=== PATIENT | female | born 1965 ===

== ENCOUNTER 2020-08-24 11:58 | Emergency (ER) | payer OTHER ==
[~2020-08-24] VITALS: Ht 167.6 cm; Wt 95.3 kg
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
[2020-08-24] MEDS ORDERED: Acetaminophen 500mg (ES) tab ORAL ONE (12:45)
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
[2020-08-24] MEDS ORDERED: HYDROCODON-ACE1 EA15 ORAL (13:56)
[2020-08-24] MEDS ORDERED: IBUPROFEN600 M1 ORAL (13:56)
--- NOTE | 2020-08-24 14:02 | NUR ---
ED Nurse Note: pt L arm placed in sling. pt verbalized understanding and education regarding sling and arm care. Pt cleared by health care Provider for discharge. DC instructions/prescription was given and explained to pt and verbalized understanding of teachings. All medical deviecs such as ID band removed. Pt is AAO x4, ambulatory and left with all personal belongings.
[2020-08-24 14:03] VITALS: BP 146/78
== END 2020-08-24 14:04 | disposition home or self-care (01) ==
LOC: EMR 12:38
DX: S40.012A Contusion of left shoulder, initial encounter (principal); V49.9XXA Car occupant (driver) (passenger) injured in unspecified traffic accident, initial encounter; Y92.9 Unspecified place or not applicable; I10 Essential (primary) hypertension; M75.32 Calcific tendinitis of left shoulder
CPT/HCPCS: 71045; 73030; 93005; Z7502; 99284

== ENCOUNTER 2020-08-27 22:50 | Emergency (ER) | payer OTHER ==
[~2020-08-27] VITALS: Ht 167.6 cm; Wt 91.6 kg
[~2020-08-27 22:50] MED LIST: HYDROCODON-ACE1 EA15 ORAL; IBUPROFEN600 M1 ORAL
[2020-08-27 23:02] VITALS: BP 160/87
[2020-08-27] MEDS ORDERED: Omnipaque 350 100ml vial INJ PRN ×2 (23:30)
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
[2020-08-27 23:49] LABS: BASOPHILS % (AUTO) 1.1 % (0.0-2.0); EOSINOPHILS % (AUTO) 3.1 % (0.0-3.0); HEMATOCRIT 40.6 % (37.0-47.0); HEMOGLOBIN 13.2 G/DL (12.0-16.0); LYMPHOCYTES % (AUTO) 52.6 % (20.0-45.0); MEAN CORPUSCULAR VOLUME 96 FL (80-99); MONOCYTES % (AUTO) 8.9 % (1.0-10.0); NEUTROPHILS % (AUTO) 34.2 % (45.0-75.0); PLATELET COUNT 173 K/UL (150-450); RED BLOOD COUNT 4.25 M/UL (4.20-5.40); RED CELL DISTRIBUTION WIDTH 12.7 % (11.6-14.8); WHITE BLOOD COUNT 4.8 K/UL (4.8-10.8)
[2020-08-27] MEDS: DiphenhydrAMINE 50mg/ml Inj IVP ONE (23:50)
[2020-08-27] MEDS: Metoclopramide 10mg/2ml Inj IVP ONE (23:50)
[2020-08-27] MEDS: Methocarbamol 750mg tab ORAL ONE (23:50)
[2020-08-28 00:01] LABS: ANION GAP 6 mmol/L (5-15); BLOOD UREA NITROGEN 19 mg/dL (7-18); CALCIUM 9.2 MG/DL (8.5-10.1); CARBON DIOXIDE 29 MMOL/L (21-32); CHLORIDE 105 MMOL/L (98-107); CREATININE 0.9 MG/DL (0.55-1.30); POTASSIUM 4.1 MMOL/L (3.5-5.1); SODIUM 140 MMOL/L (136-145)
[2020-08-28 00:08] LABS: ALANINE AMINOTRANSFERASE 35 U/L (12-78); ALBUMIN 3.6 G/DL (3.4-5.0); ALBUMIN/GLOBULIN RATIO 0.9 (1.0-2.7); ALKALINE PHOSPHATASE 88 U/L (46-116); ASPARTATE AMINO TRANSFERASE 19 U/L (15-37); BILIRUBIN,TOTAL 0.2 MG/DL (0.2-1.0)
[2020-08-28 01:38] VITALS: BP 134/81
--- NOTE | 2020-08-28 01:58 | Diagnostic Imaging Report ---
EXAM: CT Head Without Intravenous Contrast CLINICAL HISTORY: PAIN TECHNIQUE: Axial computed tomography images of the head/brain without intravenous contrast. CTDI is 53.4 mGy and DLP is 1098.9 mGy-cm. One or more of the following dose reduction techniques were used: automated exposure control, adjustment of the mA and/or kV according to patient size, use of iterative reconstruction technique. COMPARISON: No relevant prior studies available. FINDINGS: No intracranial hemorrhage, abnormal intra- or extra-axial collections or parenchymal lesions are seen. The shape and configuration of the cortical sulci, basal cisterns and ventricles are within normal limits. The vegas-white differentiation is preserved. No evidence of mass effect, midline shift, or edema. The osseous structures are unremarkable. The visualized portions of the paranasal sinuses are clear. IMPRESSION: No acute intracranial pathology
--- NOTE | 2020-08-28 02:11 | Diagnostic Imaging Report ---
EXAM: CT Angiography Head With Intravenous Contrast CLINICAL HISTORY: PAIN TECHNIQUE: Axial computed tomographic angiography images of the head with intravenous contrast. CTDI is 63.1 mGy and DLP is 526.5 mGy-cm. One or more of the following dose reduction techniques were used: automated exposure control, adjustment of the mA and/or kV according to patient size, use of iterative reconstruction technique. MIP reconstructed images were created and reviewed. COMPARISON: CT head 08/28/20 FINDINGS: Right internal carotid artery: No occlusion or significant stenosis. No aneurysm. Right anterior cerebral artery: No occlusion or significant stenosis. No aneurysm. Right middle cerebral artery: No occlusion or significant stenosis. No aneurysm. Right posterior cerebral artery: No occlusion or significant stenosis. No aneurysm. Right vertebral artery: No occlusion or significant stenosis. No aneurysm. Left internal carotid artery: No occlusion or significant stenosis. No aneurysm. Left anterior cerebral artery: No occlusion or significant stenosis. No aneurysm. Left middle cerebral artery: No occlusion or significant stenosis. No aneurysm. Left posterior cerebral artery: No occlusion or significant stenosis. No aneurysm. Left vertebral artery: Unremarkable as visualized. Basilar artery: No occlusion or significant stenosis. No aneurysm. Sinuses: Mild mucosal thickening. Other findings: No abnormal enhancement. IMPRESSION: No critical stenosis, occlusion, or aneurysm.
[2020-08-28] MEDS ORDERED: TYLENOL EXTRA500 MG ORAL (02:44)
[2020-08-28] MEDS ORDERED: ROBAXIN-750750 MG PO (02:44)
[2020-08-28] MEDS ORDERED: LIDODERM700 M1 TOPIC (02:44)
--- NOTE | 2020-08-28 03:07 | NUR ---
Patient was discharge home as EDP ordered. All vital signs were taken within normal range. Patient . All prescriptions and instructions were given to the patient . Patient verbalized understanding. patient left the hospital in stable condition .
== END 2020-08-28 03:08 | disposition home or self-care (01) ==
LOC: EMR 23:20
DX: R51.9 Headache, unspecified (principal); S40.012A Contusion of left shoulder, initial encounter; S43.402A Unspecified sprain of left shoulder joint, initial encounter; S13.4XXA Sprain of ligaments of cervical spine, initial encounter; I10 Essential (primary) hypertension; J45.909 Unspecified asthma, uncomplicated; V43.52XA Car driver injured in collision with other type car in traffic accident, initial encounter; Y93.9 Activity, unspecified; Y92.411 Interstate highway as the place of occurrence of the external cause; Z90.49 Acquired absence of other specified parts of digestive tract
CPT/HCPCS: 36415; 70450; 70496; 80053; 85025; 85610; 96361; 96374; 96375; J1200; J2765; J7030; Q9967; Z7502; 70498; 72125; 99284